=== PATIENT | female | born 1975 | race Caucasian/White ===

== ENCOUNTER → 2017-05-04 | Outpatient (CLI) | payer OTHER ==
--- NOTE | 2017-05-04 12:55 | KCIC ---
INDICATION: Family history of aneurysm. Migraine headaches with aura. TECHNIQUE: MR angiogram head includes 3-D [id number] source images and 3-D maximum intensity projection reformatted images. Axial FLAIR and diffusion imaging with ADC map was performed. No comparison is available. FINDINGS: The ventricles and sulci are within normal limits for age. Nonspecific FLAIR hyperintensity in the left frontal white matter may be secondary to minimal small vessel ischemic disease. There is no restricted diffusion to suggest an acute infarct. Cavernous carotids are without stenosis or aneurysm. Anterior and middle cerebral arteries are without stenosis or aneurysm. Both vertebral arteries supply the basilar artery. Basilar artery is without stenosis or aneurysm. No posterior cerebral artery stenosis or aneurysm is apparent. IMPRESSION: Normal intracranial MR angiogram. Electronically signed by: Andrew Yoon MD (05/04/2017 12:51 PM) [id number]
== END | disposition home or self-care (01) ==
LOC: KCIC MRI 11:31
PROVIDERS: ATTEND Internal Medicine
DX: G43.709 Chronic migraine without aura, not intractable, without status migrainosus (principal); Z86.79 Personal history of other diseases of the circulatory system
CPT/HCPCS: 70544